=== PATIENT | female | born 1985 | race Caucasian/White ===

== ENCOUNTER 2017-02-23 19:17 | Emergency (ER) | payer OTHER ==
[~2017-02-23] VITALS: Ht 170.1 cm; Wt 104.3 kg
[~2017-02-23 19:17] MED LIST: AMOXICILLIN500 MG PO; ANAPROX DS550 MG PO; AUGMENTIN 875 M1 TAB PO; BACTRIM DS 8001 TA1 PO; CIPRO500 MG PO; KEFLEX500 M1 PO; MOTRIN800 MG PO; NKHM; PEN-VEE K500 MG PO; SEPTRA DS 800 M1 TAB PO; TRAMADOL HCL50 MG PO; ULTRAM50 MG PO; VICODIN 5/500 505 MG PO
[2017-02-23] MEDS ORDERED: CEFADROXIL500 M1 PO (19:33)
[2017-02-23] MEDS ORDERED: BACTRIM DS 8001 TA1 PO (19:33)
== END 2017-02-23 19:38 | disposition home or self-care (01) ==
LOC: ED 19:17
DX: N61.0 Mastitis without abscess (principal); F17.200 Nicotine dependence, unspecified, uncomplicated; Z85.3 Personal history of malignant neoplasm of breast; Z86.19 Personal history of other infectious and parasitic diseases; Z86.14 Personal history of Methicillin resistant Staphylococcus aureus infection

== ENCOUNTER 2017-03-02 21:00 | Emergency (ER) | payer OTHER ==
[~2017-03-02] VITALS: Ht 170.1 cm; Wt 101.2 kg
[~2017-03-02 21:00] MED LIST changes: +CEFADROXIL500 M1 PO
== END 2017-03-02 21:43 | disposition home or self-care (01) ==
LOC: ED 21:00
DX: Z48.00 Encounter for change or removal of nonsurgical wound dressing (principal); F17.200 Nicotine dependence, unspecified, uncomplicated; Z98.890 Other specified postprocedural states; Z90.49 Acquired absence of other specified parts of digestive tract

== ENCOUNTER 2017-06-01 17:54 | Emergency (ER) | payer OTHER ==
[~2017-06-01] VITALS: Ht 170.1 cm; Wt 101.2 kg
[2017-06-01 18:51] LABS: BASO % 0.3 % (0.0-1.0); EOS # 0.1 10*3/uL (0.0-0.4); EOS % 0.9 % (1.0-4.0); HEMATOCRIT 38.6 % (37.0-47.0); HEMOGLOBIN 13.5 g/dl (12.0-16.0); LYMPH # 2.3 10*3/uL (1.3-4.4); LYMPH % 21.7 % (27.0-41.0); MEAN CELL VOLUME 88.7 fl (81.0-99.0); MONO # 0.7 10*3/uL (0.1-1.0); MONO % 6.2 % (3.0-9.0); NEUT # 7.5 10*3/uL (2.3-7.9); NEUT % 70.5 % (47.0-73.0); PLATELET COUNT AUTOMATED 215 10*3/uL (130-400); RED BLOOD COUNT 4.35 10*6/uL (4.10-5.10); RED CELL DISTRI WIDTH 11.8 % (0-14.5); WHITE BLOOD COUNT 10.6 10*3/uL (4.8-10.8)
[2017-06-01 19:05] LABS: ALBUMIN 3.5 gm/dl (3.1-4.5); ALKALINE PHOSPHATASE 66 U/L (45-117); BUN 9 mg/dl (7-24); CHLORIDE 100 mmol/L (98-107); CREATININE 0.69 mg/dL (0.55-1.02); LIPASE 84 U/L (73-393); POTASSIUM 3.8 mmol/L (3.5-5.1); SGOT/AST 22 IU/L (3-35); SGPT/ALT 15 U/L (12-78); SODIUM 134 mmol/L (136-145); TOTAL PROTEIN 7.7 gm/dL (6.4-8.2)
[2017-06-01 19:07] LABS: BETA-HCG, QUANT < 1.0 mIU/mL (1-3)
[2017-06-01 19:16] LABS: BILIRUBIN NEGATIVE (NEGATIVE); BLOOD NEGATIVE (NEGATIVE); CLARITY SL CLOUDY (CLEAR); COLOR YELLOW (YELLOW); GLUCOSE NEGATIVE (NEGATIVE); KETONE NEGATIVE (NEGATIVE); LEUKO ESTERASE NEGATIVE (NEGATIVE); NITRITE NEGATIVE (NEGATIVE); PH 5.5 (5.0-9.0); SPECIFIC GRAVITY >= 1.030 (1.005-1.030); UROBILINOGEN 0.2 E.U./dl (0.2-1.0)
[2017-06-01 19:21] LABS: BACTERIA TRACE; MUCOUS 3+
[2017-06-01 19:22] LABS: HYALINE CAST 0-2; WBC 0-2 wbc/hpf (0-5)
[2017-06-01] MEDS ORDERED: ZOFRAN ODT4 MG SL (20:53)
== END 2017-06-01 21:01 | disposition home or self-care (01) ==
LOC: ED 17:54
PROVIDERS: Physician Assistant
DX: R11.2 Nausea with vomiting, unspecified (principal); F17.200 Nicotine dependence, unspecified, uncomplicated; Z90.49 Acquired absence of other specified parts of digestive tract

== ENCOUNTER 2018-05-06 09:06 | Emergency (ER) | payer OTHER ==
[~2018-05-06] VITALS: Ht 170.1 cm; Wt 104.3 kg
--- NOTE | ~2018-05-06 | EKG ---
[place], [place] ELECTROCARDIOGRAM REPORT NAME: ALETHA LUKE UNIT #: [id number] ROOM: DOCTOR: PRABHA DRAFT REPORT BIRTHDATE: [birth year] [facility] Test Date: 2018-05-06 Test Time: 09:41:12 Pat Name: ALETHA LUKE Department: Room: Gender: F Director Auto: EKG.DC : 1985 Requested By: JIMMY ELIZABETH Order Number: [id number] Reading MD: Michael Rincon MD Measurements Intervals Holcomb Rate: 90 P: 48 MA: 165 QRS: 32 QRSD: 76 T: 20 QT: 349 QTc: 427 Interpretive Statements Sinus rhythm Normal ECG No previous ECG available for comparison Electronically Signed On 05-11-2018 12:09:04 PDT by Michael Rincon MD CM:EKGRPT:ELECTROCARDIOGRAM REPORT [id number] JIMMY TALAVERA DRAFT REPORT JIMMY ELIZABETH DO
[~2018-05-06 09:06] MED LIST changes: +ZOFRAN ODT4 MG SL
[2018-05-06 09:47] LABS: BASO % 0.2 % (0.0-1.0); EOS # 0.1 10*3/uL (0.0-0.4); HEMATOCRIT 38.6 % (37.0-47.0); HEMOGLOBIN 12.9 g/dl (12.0-16.0); LYMPH # 2.1 10*3/uL (1.3-4.4); MEAN CELL VOLUME 94.1 fl (81.0-99.0); MEAN CORPUSCULAR HGB 31.5 pg (27.0-31.0); MEAN CORPUSCULAR HGB CONC 33.4 g/dl (33.0-37.0); MEAN PLATELET VOLUME 9.9 fl (9.6-12.3); MONO # 0.7 10*3/uL (0.1-1.0); MONO % 8.2 % (3.0-9.0); NEUT # 5.4 10*3/uL (2.3-7.9); NEUT % 65.5 % (47.0-73.0); PLATELET COUNT AUTOMATED 270 10*3/uL (130-400); RED CELL DISTRI WIDTH 12.5 % (0-14.5); WHITE BLOOD COUNT 8.3 10*3/uL (4.8-10.8)
[2018-05-06 09:57] LABS: BILIRUBIN NEGATIVE (NEGATIVE); BLOOD NEGATIVE (NEGATIVE); CLARITY SL CLOUDY (CLEAR); COLOR YELLOW (YELLOW); GLUCOSE NEGATIVE (NEGATIVE); KETONE NEGATIVE (NEGATIVE); LEUKO ESTERASE TRACE (NEGATIVE); NITRITE NEGATIVE (NEGATIVE); SPECIFIC GRAVITY <= 1.005 (1.005-1.030); UROBILINOGEN 0.2 E.U./dl (0.2-1.0)
[2018-05-06 10:04] LABS: ACETAMINOPHEN (TYLENOL) < 2.0 ug/ml (10-30); ALBUMIN 3.9 gm/dl (3.1-4.5); ALKALINE PHOSPHATASE 61 U/L (45-117); BUN 7 mg/dl (7-24); CHLORIDE 107 mmol/L (98-107); CREATININE 0.68 mg/dL (0.55-1.02); ETHYL ALCOHOL < 3.0 mg/dl (<3); POTASSIUM 3.5 mmol/L (3.5-5.1); SGOT/AST 18 IU/L (3-35); SGPT/ALT 24 U/L (12-78); SODIUM 140 mmol/L (136-145); TOTAL PROTEIN 7.4 gm/dL (6.4-8.2)
[2018-05-06 10:04] LABS: URINE AMPHETAMINES < 1000 (1000ng/ml); URINE BARBITURATES < 200 (200ng/ml); URINE BENZODIAZEPINES < 200 (200ng/ml); URINE CANNABINOIDS (THC) < 50 (50ng/ml); URINE COCAINE > 300 (300ng/ml); URINE METHADONE < 300 (300ng/ml); URINE OPIATES < 300 (300ng/ml); URINE PHENCYCLIDINE < 25 (25ng/ml)
[2018-05-06 10:05] LABS: BETA-HCG, QUANT < 1.0 mIU/mL (1-3)
[2018-05-06 10:10] LABS: BACTERIA 2+; CALCIUM OXALATE CRYSTALS 1+
== END 2018-05-06 19:53 | disposition home health service (06) ==
LOC: ED 09:06
PROVIDERS: Emergency Medicine
DX: F32.9 Major depressive disorder, single episode, unspecified (principal); R45.851 Suicidal ideations; E66.9 Obesity, unspecified; F17.200 Nicotine dependence, unspecified, uncomplicated; Z68.30 Body mass index [BMI] 30.0-30.9, adult; Z90.49 Acquired absence of other specified parts of digestive tract

== ENCOUNTER 2020-01-06 21:17 | Emergency (ER) | payer OTHER ==
[~2020-01-06] VITALS: Ht 172.7 cm; Wt 113.4 kg
[2020-01-06 22:23] LABS: BASO % 0.2 % (0.0-1.0); EOS # 0.1 10*3/uL (0.0-0.4); EOS % 1.2 % (1.0-4.0); HEMATOCRIT 36.8 % (37.0-47.0); LYMPH # 2.6 10*3/uL (1.3-4.4); LYMPH % 28.9 % (27.0-41.0); MEAN CELL VOLUME 96.3 fl (81.0-99.0); MEAN CORPUSCULAR HGB 32.2 pg (27.0-31.0); MEAN CORPUSCULAR HGB CONC 33.4 g/dl (33.0-37.0); MEAN PLATELET VOLUME 10.1 fl (9.6-12.3); MONO # 0.6 10*3/uL (0.1-1.0); MONO % 6.4 % (3.0-9.0); NEUT # 5.7 10*3/uL (2.3-7.9); NEUT % 63.1 % (47.0-73.0); PLATELET COUNT AUTOMATED 269 10*3/uL (130-400); RED BLOOD COUNT 3.82 10*6/uL (4.10-5.10); RED CELL DISTRI WIDTH 12.8 % (0-14.5); WHITE BLOOD COUNT 9.1 10*3/uL (4.8-10.8)
[2020-01-06 22:39] LABS: ALBUMIN 3.5 gm/dl (3.1-4.5); ALKALINE PHOSPHATASE 69 U/L (45-117); BUN 13 mg/dl (7-24); CHLORIDE 105 mmol/L (98-107); CREATININE 0.83 mg/dL (0.55-1.02); POTASSIUM 3.9 mmol/L (3.5-5.1); SGOT/AST 12 IU/L (3-35); SGPT/ALT 18 U/L (12-78); SODIUM 139 mmol/L (136-145)
[2020-01-06] MEDS ORDERED: IBU800 MG PO (23:13)
[2020-01-06] MEDS ORDERED: CLEOCIN HCL150 MG PO (23:13)
== END 2020-01-06 23:18 | disposition home or self-care (01) ==
LOC: ED 21:17
PROVIDERS: Nurse Practitioner Family
DX: M86.8X1 Other osteomyelitis, shoulder (principal); G40.909 Epilepsy, unspecified, not intractable, without status epilepticus; F17.200 Nicotine dependence, unspecified, uncomplicated

== ENCOUNTER 2025-05-11 13:04 | Emergency (ER) | payer OTHER ==
[~2025-05-11] VITALS: Ht 170.1 cm; Wt 99.8 kg
[~2025-05-11 13:04] MED LIST changes: +CLEOCIN HCL150 MG PO; +IBU800 MG PO
[2025-05-11] MEDS ORDERED: VIBRAMYCIN100 MG PO (13:49)
[2025-05-11] MEDS ORDERED: Acetaminophen/Hydrocodone HP 10/325 PO ONE (13:50)
[2025-05-11] MEDS ORDERED: Bacitracin Zinc 14 GM TUBE T ONE (13:50)
== END 2025-05-11 14:11 | disposition home or self-care (01) ==
LOC: ED 13:04
DX: L02.212 Cutaneous abscess of back [any part, except buttock and flank] (principal)